=== PATIENT | female | born 1960 | race Caucasian/White ===

== ENCOUNTER → 2019-12-08 11:08 | Outpatient (CLI) | payer MEDICARE, SELFPAY ==
--- NOTE | ~2019-12-08 | XR_ITS ---
EXAMINATION: XR knee LT 2V DATE: 12/08/2019 11:38 INDICATION: Left knee pain. TECHNIQUE: 2 views of left knee were obtained. COMPARISON: Left knee radiographs 09/16/2017 FINDINGS: Bone alignment is normal. No fracture. There is mild osteoarthritis of medial and patellofe moral compartments. No knee joint effusion. IMPRESSION: 1. Mild left knee osteoarthritis. Reviewed, dictated and finalized at location A. TATION OPERATOR CONVERSION
--- NOTE | ~2019-12-08 | XR_ITS ---
EXAMINATION: XR knee RT 2V DATE: 12/08/2019 11:38 INDICATION: Right knee pain and swelling. TECHNIQUE: 2 views of right knee were obtained. COMPARISON: Right knee radiographs 09/16/2017 FINDINGS: Bone alignment is normal. No fracture. There is mild tricompartmental osteoarthritis. No kn ee joint effusion. IMPRESSION: 1. Mild right knee osteoarthritis. Reviewed, dictated and finalized at location A. K INSPECTING SUPERVISOR
== END ==
PROVIDERS: PCP Family Medicine; Visit Provider Nurse Practitioner Family
DX: M17.0 Bilateral primary osteoarthritis of knee (principal)
CPT/HCPCS: 73560

== ENCOUNTER → 2019-12-08 11:11 | Outpatient (CLI) | payer MEDICARE, SELFPAY ==
--- NOTE | ~2019-12-08 | XR_ITS ---
XR_[id number]_CR DATE: 12/08/2019 11:38 INDICATION: Cervical surgical fusion TECHNIQUE: AP and lateral views COMPARISON: None FINDINGS: There is an anterior plate at C4, C5 and C6, secured by 6 screws, 2 each level. There is in terbody spinal fusion at C4-5 and C5-6. There is bony fusion at C6-7. No fracture or dislocation, locked facet or prevertebral soft tissue swelling is detected. There is degenerative change at the apophyseal joints. There is approximately 20 degrees levoscoliosis measured from T1 T5. IMPRESSION: Bony fusion at C6-7 Status post anterior and interbody spinal fusion at C4-C6 Reviewed, dictated and finalized at Location A. Reviewed, dictated and finalized at location B. R SUPERVISOR
== END ==
PROVIDERS: PCP Family Medicine
DX: Z98.1 Arthrodesis status (principal)
CPT/HCPCS: 72040

== ENCOUNTER → 2021-02-09 10:18 | Outpatient (CLI) | payer MEDICARE, SELFPAY ==
--- NOTE | ~2021-02-09 | XR_ITS ---
EXAMINATION: XR elbow RT 2V DATE: 02/09/2021 10:30 INDICATION: Right elbow pain. TECHNIQUE: 2 views of right elbow were obtained. COMPARISON: None. FINDINGS: Bone alignment is normal. No fracture. Joint spaces are well maintained. There is an enthes ophyte at lateral humeral epicondyle. There is no elbow joint effusion. IMPRESSION: 1. No fracture. Reviewed, dictated and finalized at location A. IMPRESSION: 1. No fracture.
== END ==
PROVIDERS: PCP Family Medicine; Visit Provider Nurse Practitioner Family
DX: M25.521 Pain in right elbow (principal)
CPT/HCPCS: 73070

== ENCOUNTER → 2021-04-13 13:38 | Outpatient (CLI) | payer MEDICARE, SELFPAY ==
--- NOTE | ~2021-04-13 | XR_ITS ---
EXAMINATION: XR sacroiliac joints min 3V EXAM DATE: 04/13/2021 14:11 INDICATION: Sacroiliac joint pain x years, no known trauma. Right S.I joint pain, x years pain in low er back radiating down right leg, gets sharp pain, history of nerve ablation , no trauma, no surg. TECHNIQUE: Frontal and bilateral oblique projections of the sacroiliac joints. There is no prior st udy for comparison. FINDINGS: Sacrum, sacroiliac joints, sacral arcuate lines are intact. There is mild symmetric sacroi liac and bilateral hip primary osteoarthritis. There are no acute fractures or dislocations identifie d. There is no subcutaneous gas. The soft tissue is unremarkable. There are no radiopaque foreign bodies. IMPRESSION: Mild osteoarthritis. Reviewed, dictated and finalized at location A. IMPRESSION: Mild osteoarthritis.
== END ==
PROVIDERS: Visit Provider Nurse Practitioner Family
DX: M53.3 Sacrococcygeal disorders, not elsewhere classified (principal); M47.898 Other spondylosis, sacral and sacrococcygeal region
CPT/HCPCS: 72202